=== PATIENT | male | born 1940 | race Caucasian/White ===

== ENCOUNTER 2024-04-23 15:05 | Emergency (ER) | payer MEDICARE, OTHER, SELFPAY ==
[2024-04-23 15:13] VITALS: BP 153/88
--- NOTE | 2024-04-23 15:42 | ED.GENMED ---
History of Present Illness
General
Chief Complaint: Chest Problem
Time Seen by Provider: 04/23/24 15:29
History of Present Illness
History of Present Illness:
84-year-old male presents to the emergency department with his daughter for evaluation after falling down a flight of stairs. Patient states that he tripped but denies any loss of consciousness. He apparently was able to get himself to his vehicle
and drove herself to his daughter's house in order to come to the hospital. He denies headache or neck pain. Complains of right knee pain and right rib pain.
Review of Systems
Review of Systems
Allergies reviewed?: Yes
All Other Systems: ROS reviewed and negative except as documented in HPI and ROS
Phy Exam
Physical Exam
Physical Exam:
GEN: Well appearing, NAD, WDWN
Eyes: PERRLA, EOMs intact, no scleral icterus
HENT: NCAT, oral mucosa moist
Lungs: CTAB, no wheezes, rales, rhonchi, normal chest wall excursion
Chest: Tenderness to the right chest wall anterior axillary line, no deformity
Cardiac: RRR, no M/R/G, no peripheral edema. Radial pulses 2+ bilat
Abdomen: Soft, moderate right upper quadrant tenderness, no rigidity
Neuro: AO x 3, no focal deficits to BUE/BLE, normal sensation throughout
MSK: No gross deformity or ecchymosis. No edema. No digital clubbing
Skin: No rashes, petechiae. Normal color, no pallor or jaundice.
Psych: Calm, cooperative, proper hygiene
Course
Orders/Labs/Results
Orders:
Orders
04/23/24 15:12
Electrocardiogram (*1) Urgent
Reason for Study: Chest Pain
04/23/24 15:13
EKG- Treatment ONCE
04/23/24 15:41
CT Cervical Spine W/o Iv Contr Urgent
Comment:
Reason For Exam: trauma
CT Chest/abd/pel W Iv Cont Urgent
Comment:
Reason For Exam: trauma
CT Head W/o Iv Contrast Urgent
Comment:
Reason For Exam: trauma
CR Knee- Right 4 Or More View* Urgent
Comment:
Reason For Exam: trauma
04/23/24 16:03
Complete Blood Count/No Diff Urgent
Comprehensive Metabolic Panel Urgent
04/23/24 18:01
Lidocaine [Lidocaine 4% Patch] 1 patch TOPICAL NOW STA
Apply Lidocaine patch(s) to:: right flank
Morphine Sulfate 4 mg IV NOW STA
04/23/24 19:24
Ketorolac [Toradol] 15 mg IV NOW STA
Abnormal Lab Results
04/23/24
16:03
WBC 12.1 H 10^3/uL
(4.8-10.8)
RBC 4.56 L 10^6/uL
(4.70-6.10)
BUN 34 H mg/dl
(9-20)
Glucose 109 H mg/dl
(70-99)
04/23/24 16:03
04/23/24 16:03
Vital Signs
Initial and Last Documented VS:
Initial Vital Signs
Temp Pulse Resp BP Pulse Ox
98.6 F 86 16 153/88 97
04/23/24 15:13 04/23/24 15:13 04/23/24 15:13 04/23/24 15:13 04/23/24 15:13
Last Documented Vital Signs
Temp Pulse Resp BP Pulse Ox
98.6 F 82 26 145/81 93
04/23/24 15:13 04/23/24 20:00 04/23/24 20:00 04/23/24 20:00 04/23/24 20:00
MDM/Problems Addressed
MDM/Problems Addressed:
Due to multiple R sided rib fx, despite lack of internal organ injuries or hemorrhage, pt will require transfer to a trauma center for further evaluation. CTH/C spine unremarkable. Case was reviewed with trauma surgery at [facility],
requested by patient and family, and the case was excepted for medical transfer
*Critical Care Note
Total Time (30-74mins, 75-104mins- exclusive of procedures): Not Applicable
ED Attending Note
-
Portions of this chart may have been created with voice recognition software.� Occasional wrong word or��sound alike� substitutions may have occurred due to the inherent limitations of voice recognition software.
Discharge Plan
Departure
Patient Disposition: Acute Care Hospital
Date of Disposition: 04/23/24
Time of Disposition: 19:04
Discharge Problem:
Multiple fractures of ribs
Referrals:
Henry Daly MD [Family Provider] -
Hospital Transfer
Other hospital: [facility]
I certify that the patient requires transfer: Yes
Discussed case with accepting physician: Blair
Reason for transfer: higher level of care
Interventions
Interventions:
*Risk Screen - Suicide Last Done: 04/23/24 16:20
*General Assessment Last Done: 04/23/24 16:20
*Neglect/Abuse Screening Last Done: 04/23/24 16:20
ED- Fall Risk Assessment Last Done: 04/23/24 16:20
ED- Cardiac Assessment Last Done: 04/23/24 16:20
ED- Pulmonary Assessment Last Done: 04/23/24 16:20
Discharge Date and Time
Print Language: WOLOF
[2024-04-23 16:26] LABS: Hematocrit 41.2 % (39.0-52.0); Mean Corpuscular Hgb 30.7 pg (27.0-31.0); Mean Corpuscular Volume 90.4 fL (80.0-94.0); Mean Platelet Volume 9.6 fL (7.4-10.4); Platelet Count 293 10^3/uL (130-400); Red Blood Cell Count 4.56 10^6/uL (4.70-6.10); Red Cell Dist. Width 13.5 % (11.5-14.5); White Blood Cell Count 12.1 10^3/uL (4.8-10.8)
[2024-04-23 16:42] LABS: ALT (SGPT) 43 U/L (0-50); AST (SGOT) 46 U/L (17-59); Albumin 4.2 g/dl (3.5-5.0); Alkaline Phosphatase 94 U/L (38-126); Blood Urea Nitrogen 34 mg/dl (9-20); Calcium 10.1 mg/dl (8.4-10.2); Carbon Dioxide 27 mmol/L (22-30); Chloride 106 mmol/L (98-107); Glucose 109 mg/dl (70-99); Potassium 4.3 mmol/L (3.5-5.1); Sodium 140 mmol/L (135-145); Total Bilirubin 0.6 mg/dl (0.2-1.3); Total Protein 6.9 g/dl (6.3-8.2); eGFR > 60.00
[2024-04-23] MEDS: LIDOCAINE 4% PATCH 1 PATCH TOPICAL (18:07)
[2024-04-23] MEDS: MORPHINE SULFATE 4 MG IV (18:07)
[2024-04-23 19:06] VITALS: BMI 24.1
[2024-04-23 19:12] VITALS: BP 146/81
[2024-04-23 19:13] VITALS: BP 144/64
[2024-04-23] MEDS: TORADOL 15 MG IV (19:45)
[2024-04-23 20:00] VITALS: BP 145/81
[2024-04-23 21:00] VITALS: BP 156/86
== END 2024-04-23 21:25 | disposition short-term general hospital (02) ==
LOC: EMR 15:05
PROVIDERS: Physician Assistant; EMERGENCY PHYSICIAN Emergency Medicine; FAMILY PHYSICIAN Internal Medicine
DX: S22.41XA Multiple fractures of ribs, right side, initial encounter for closed fracture (principal); W10.9XXA Fall (on) (from) unspecified stairs and steps, initial encounter
CPT/HCPCS: 99285; 96374; 96375; 70450; 71260; 72125; 73564; 74177; 80053; 85027; 93005; Q9967